=== PATIENT | female | born 1990 | race Caucasian/White ===

== ENCOUNTER 2018-06-08 19:51 | Emergency (ER) | payer OTHER ==
[~2018-06-08] VITALS: Ht 172.7 cm; Wt 105.0 kg
[2018-06-08 23:26] VITALS: BP 145/84
== END 2018-06-08 23:26 | disposition home or self-care (01) ==
LOC: ER 21:07
DX: S80.862A Insect bite (nonvenomous), left lower leg, initial encounter (principal); S30.860A Insect bite (nonvenomous) of lower back and pelvis, initial encounter; S80.861A Insect bite (nonvenomous), right lower leg, initial encounter; W57.XXXA Bitten or stung by nonvenomous insect and other nonvenomous arthropods, initial encounter; Y93.89 Activity, other specified; Y92.89 Other specified places as the place of occurrence of the external cause; R03.0 Elevated blood-pressure reading, without diagnosis of hypertension
CPT/HCPCS: 81025; 99283

== ENCOUNTER 2018-11-04 21:33 | Emergency (ER) | payer OTHER | END 2018-11-04 23:10 | disposition left against medical advice (07) | LOC: ER 21:33 | DX: Z53.21 Procedure and treatment not carried out due to patient leaving prior to being seen by health care provider (principal) ==